=== PATIENT | male | born 1965 | race Caucasian/White ===

== ENCOUNTER 2017-01-25 00:50 | Emergency (ER) | payer MEDICAID, OTHER ==
[~2017-01-25] VITALS: Ht 170.2 cm; Wt 99.8 kg
--- NOTE | 2017-01-25 00:50 | NUR ---
Patient brought in by P seeking medical clearance. Patient presents with 2cm laceration to the left sikhism. Skant residual blood noted to sikhism. No other injuries sustained. Patient denies pain. [facility] at bedside.
--- NOTE | 2017-01-25 00:50 | NUR ---
Patient to ER bed 3 to gown for evaluation. Side rails up. Report given to Panchito DUDLEY.
--- NOTE | 2017-01-25 01:00 | NUR ---
ED MD Davenport at bedside for medical evaluation.
[2017-01-25 01:13] VITALS: BP_SYST 144
--- NOTE | 2017-01-25 01:30 | NUR ---
Wound cleansed with iodine and saline. No active bleeding noted. 2cm laceration noted.
--- NOTE | 2017-01-25 01:50 | NUR ---
OPAL Davenport at bedside for suture placement.
--- NOTE | 2017-01-25 02:30 | NUR ---
ED MD Davenport at bedside reassessing patient.
[2017-01-25] MEDS ORDERED: LIDOCAINE/EPI 1% 1:100000 20 ML VIAL INJ ONE ×2 (02:45→02:48)
[2017-01-25 02:55] VITALS: BP_SYST 131
--- NOTE | 2017-01-25 02:55 | NUR ---
Patient given written and verbal discharge instructions and verbalizes understanding. ER MD discussed with patient the results and treatment provided. Patient in stable condition. ID arm band removed. No Rx given. Patient educated on pain management and to follow up with PMD. Pain Scale 0/10. Opportunity for questions provided and answered. Patient has no other complaints at this time. Discharged in [facility] custody. Ambulatory with handcuffs.
== END 2017-01-25 02:55 ==
LOC: SED 00:50
DX: Z02.89 Encounter for other administrative examinations (principal); S01.112A Laceration without foreign body of left eyelid and periocular area, initial encounter; W51.XXXA Accidental striking against or bumped into by another person, initial encounter; Y93.89 Activity, other specified; Y92.89 Other specified places as the place of occurrence of the external cause; Y99.8 Other external cause status
CPT/HCPCS: 99283